=== PATIENT | male | born 1950 | race Asian ===

== ENCOUNTER 2019-02-09 02:07 | Emergency (ER) | payer OTHER ==
[~2019-02-09] VITALS: Ht 172.7 cm; Wt 72.6 kg
[2019-02-09 02:07] VITALS: BP_SYST 144
--- NOTE | 2019-02-09 02:07 | NUR ---
Pt placed to ER bed 04, to gown, to groundwater monitoring technician. Dr. Rueda made aware.
--- NOTE | 2019-02-09 02:10 | NUR ---
Dr. Rueda at bedside.
--- NOTE | 2019-02-09 02:20 | NUR ---
Pt report given to MARTHA Jaramillo.
--- NOTE | 2019-02-09 02:30 | NUR ---
68 y/o male presenting to ER w/ c/o of SOB that started earlier this morning. Pt states he is also congested which made contribute to the SOB, and has had a dizziness spell earlier as well. Pt denies any N/V, fever, chills. Pt has Hx of angioplasty, and HTN. Will continue to monitor.
[2019-02-09 03:03] LABS: BASOPHILS # (AUTO) 0.1 K/uL (0.0-0.2); BASOPHILS % (AUTO) 1.3 % (0.0-2.0); EOSINOPHILS % (AUTO) 9.8 % (0.0-4.0); HEMATOCRIT 36.8 % (36-54); HEMOGLOBIN 12.6 g/dL (14.0-18.0); LYMPHOCYTES # (AUTO) 3.2 K/uL (1.0-5.5); LYMPHOCYTES % (AUTO) 30.7 % (20.5-51.5); MEAN CORPUSCULAR HEMOGLOBIN 29 pg (27-31); MEAN CORPUSCULAR HGB CONC 34 % (32-36); MEAN CORPUSCULAR VOLUME 85 fL (79.0-98.0); MONOCYTES # (AUTO) 1.3 K/uL (0.0-1.0); MONOCYTES % (AUTO) 12.2 % (1.7-9.3); NEUTROPHILS # (AUTO) 4.8 K/uL (1.8-7.7); PLATELET COUNT (AUTO) 343 K/uL (130-430); RED BLOOD CELL COUNT(AUTO) 4.33 MIL/uL (4.2-6.2); RED CELL DISTRIBUTION WIDTH 13.8 % (9.0-15.0); WHITE BLOOD COUNT (AUTO) 10.3 K/uL (4.8-10.8)
[2019-02-09 03:23] LABS: CALCIUM 9.1 mg/dL (8.4-11.0); CREATININE 1.07 mg/dL (0.55-1.30); POTASSIUM 3.1 mmol/L (3.5-5.1)
[2019-02-09 03:30] LABS: ALBUMIN 3.7 g/dL (3.4-4.8); TOTAL BILIRUBIN 0.4 mg/dL (0.0-1.0)
[2019-02-09] MEDS ORDERED: POTASSIUM CHLORIDE 20 MEQ/PKT PACKET PO ONE (03:45)
[2019-02-09] MEDS ORDERED: TAMS-11 PO (03:48)
[2019-02-09] MEDS ORDERED: ASA81 PO (03:48)
[2019-02-09] MEDS ORDERED: MULT-1164 PO (03:48)
[2019-02-09] MEDS ORDERED: HYDR100T25 PO (03:48)
[2019-02-09] MEDS ORDERED: LOSA1TAB15 PO (03:48)
[2019-02-09] MEDS ORDERED: HYDR25TA4 PO (03:48)
[2019-02-09] MEDS ORDERED: OMEG1CAP PO (03:48)
--- NOTE | 2019-02-09 03:48 | NUR ---
Medication reconciliation completed with information provided by patient. Any prior medication reconciliation on file was reviewed and corrected.
[2019-02-09] MEDS ORDERED: PREDNISONE 20 MG TABLET PO ONE (04:00)
[2019-02-09 06:15] VITALS: BP_SYST 133
--- NOTE | 2019-02-09 06:15 | NUR ---
Patient given written and verbal discharge instructions and verbalizes understanding. ER MD discussed with patient the results and treatment provided. Patient in stable condition. ID arm band removed. IV catheter removed intact and dressing applied, no active bleeding. Rx of Claritin given. Patient educated on pain management and to follow up with PMD. Pain Scale 0/10. Opportunity for questions provided and answered. Medication side effect fact sheet provided.
[2019-02-09] MEDS ORDERED: IPRATROPIUM/ALBUTEROL SULFATE 3 ML AMPUL.NEB (DUONEB) ONE (12:50)
== END 2019-02-09 06:15 | disposition home or self-care (01) ==
LOC: SED 02:07
DX: R06.02 Shortness of breath (principal); R09.81 Nasal congestion; E87.6 Hypokalemia; R42 Dizziness and giddiness; Z88.6 Allergy status to analgesic agent; Z79.899 Other long term (current) drug therapy
CPT/HCPCS: 36415; 71045; 80053; 82550; 83880; 84484; 85025; 85379; 93005; 99284; J7512; J7620

== ENCOUNTER 2019-07-02 12:41 | Emergency (ER) | payer OTHER ==
[~2019-07-02] VITALS: Ht 172.7 cm; Wt 79.4 kg
[2019-07-02 12:41] VITALS: BP_SYST 179
[~2019-07-02 12:41] MED LIST: ASA81 PO; HYDR100T25 PO; HYDR25TA4 PO; LOSA1TAB15 PO; MULT-1164 PO; OMEG1CAP PO; TAMS-11 PO
[2019-07-02] MEDS ORDERED: LORATADINE 10 MG TABLET PO ONE (13:15)
[2019-07-02] MEDS ORDERED: PREDNISONE 20 MG TABLET PO ONE (13:15)
[2019-07-02 14:15] VITALS: BP_SYST 179
== END 2019-07-02 14:15 | disposition home or self-care (01) ==
LOC: SED 12:41
DX: R06.4 Hyperventilation (principal); E11.9 Type 2 diabetes mellitus without complications; F17.200 Nicotine dependence, unspecified, uncomplicated; Z79.899 Other long term (current) drug therapy
CPT/HCPCS: 36600; 82803; 99283; J7512

== ENCOUNTER 2019-07-13 11:29 | Emergency (ER) | payer OTHER ==
[~2019-07-13] VITALS: Ht 172.7 cm; Wt 73.5 kg
[2019-07-13 11:29] VITALS: BP_SYST 179
--- NOTE | 2019-07-13 11:29 | NUR ---
TRIAGED AND BROUGHT BACK TO BED #2, REPORT GIVEN TO DANNI
--- NOTE | 2019-07-13 11:30 | NUR ---
Patient recieved, in stable condition.
--- NOTE | 2019-07-13 11:33 | NUR ---
pt arrives from home w/ anxiety. Pt was given a prescription for Xanax, however, pt ran out of his medication. No other c/o at the moment
--- NOTE | 2019-07-13 11:38 | NUR ---
ER Dr. Brandt at bedside examining patient.
[2019-07-13] MEDS ORDERED: LORazepam 2 MG/ML VIAL IM ONE (12:30)
--- NOTE | 2019-07-13 12:40 | NUR ---
Ativan given per MD order. Will reassess
[2019-07-13 12:51] LABS: BASOPHILS # (AUTO) 0.1 K/uL (0.0-0.2); EOSINOPHILS # (AUTO) 0.5 K/uL (0.0-0.4); EOSINOPHILS % (AUTO) 5.5 % (0.0-4.0); HEMATOCRIT 36.7 % (36-54); HEMOGLOBIN 12.6 g/dL (14.0-18.0); LYMPHOCYTES # (AUTO) 2.7 K/uL (1.0-5.5); LYMPHOCYTES % (AUTO) 28.5 % (20.5-51.5); MEAN CORPUSCULAR HEMOGLOBIN 28 pg (27-31); MEAN CORPUSCULAR HGB CONC 34 % (32-36); MEAN CORPUSCULAR VOLUME 83 fL (79.0-98.0); MONOCYTES # (AUTO) 1.3 K/uL (0.0-1.0); MONOCYTES % (AUTO) 13.2 % (1.7-9.3); NEUTROPHILS % (AUTO) 51.8 % (40.0-70.0); PLATELET COUNT (AUTO) 383 K/uL (130-430); RED BLOOD CELL COUNT(AUTO) 4.44 MIL/uL (4.2-6.2); RED CELL DISTRIBUTION WIDTH 13.8 % (9.0-15.0); WHITE BLOOD COUNT (AUTO) 9.6 K/uL (4.8-10.8)
--- NOTE | 2019-07-13 13:00 | NUR ---
Patient reports feeling less anxious.
[2019-07-13 13:07] LABS: ALBUMIN 3.8 g/dL (3.4-4.8); CALCIUM 8.8 mg/dL (8.4-11.0); CREATININE 1.19 mg/dL (0.55-1.30); TOTAL BILIRUBIN 0.5 mg/dL (0.0-1.0)
[2019-07-13 13:10] LABS: POTASSIUM 3.2 mmol/L (3.5-5.1)
--- NOTE | 2019-07-13 13:18 | NUR ---
MD Brandt new order potassium 20 meq tablet PO. Orders placed.
[2019-07-13] MEDS ORDERED: POTASSIUM CHLORIDE 20 MEQ TAB.PRT.SR PO ONE (13:30)
[2019-07-13 14:50] VITALS: BP_SYST 168
--- NOTE | 2019-07-13 14:51 | NUR ---
Patient given written and verbal discharge instructions and verbalizes understanding. ER MD discussed with patient the results and treatment provided. Patient in stable condition. ID arm band removed. IV catheter removed intact and dressing applied, no active bleeding. Rx of Xanax given. Patient educated on pain management and to follow up with PMD. Pain Scale 0/10. Opportunity for questions provided and answered. Medication side effect fact sheet provided.
== END 2019-07-13 14:50 | disposition home or self-care (01) ==
LOC: SED 11:29
DX: F41.9 Anxiety disorder, unspecified (principal); E11.9 Type 2 diabetes mellitus without complications; Z79.899 Other long term (current) drug therapy
CPT/HCPCS: 36415; 71045; 80053; 85025; 96372; 99284; J2060